=== PATIENT | male | born 1935 | race Caucasian/White ===

== ENCOUNTER 2020-08-19 09:44 | Outpatient (CLI) | payer OTHER ==
[~2020-08-19 09:44] MED LIST: DEXL60CA4 PO; OLME1TAB23 PO; STA60 PO
== END 2020-08-19 19:55 | disposition home or self-care (01) ==
LOC: SNM 09:44
PROVIDERS: ATTEND Internal Medicine
DX: C61 Malignant neoplasm of prostate (principal)
CPT/HCPCS: 78306; A9503

== ENCOUNTER 2022-01-18 10:30 | Outpatient (CLI) | payer OTHER, MEDICAID | END 2022-01-18 16:00 | disposition home or self-care (01) | LOC: SNM 10:30 | PROVIDERS: ATTEND Internal Medicine Medical Oncology | DX: C61 Malignant neoplasm of prostate (principal) | CPT/HCPCS: 78306; A9503 ==

== ENCOUNTER 2022-05-08 05:13 | Inpatient (IN) | payer OTHER, MEDICAID ==
[~2022-05-08] VITALS: Ht 175.3 cm; Wt 75.3 kg
[2022-05-08] MEDS ORDERED: LORazepam 2 MG/ML VIAL IVP ONE (05:30)
[2022-05-08] MEDS ORDERED: HYDROmorphone 1 MG/ML INJ. CARTRIDGE IVP ONE ×3 (05:30→14:45)
[2022-05-08 05:32] VITALS: BP_SYST 199
[2022-05-08] MEDS ORDERED: METOPROLOL TARTRATE 25 MG TABLET PO ONE (07:00)
[2022-05-08] MEDS ORDERED: OLMESARTAN MEDOXOMIL 20 MG TABLET PO ONE (07:00)
[2022-05-08] MEDS ORDERED: LOSARTAN POTASSIUM 50 MG TABLET (COZAAR) PO ONE (08:45)
[2022-05-08 09:07] LABS: BASOPHILS % (AUTO) 0.4 % (0.0-2.0); EOSINOPHILS % (AUTO) 0.3 % (0.0-4.0); HEMATOCRIT 39.6 % (36-54); HEMOGLOBIN 14.3 g/dL (14.0-18.0); LYMPHOCYTES # (AUTO) 1.3 K/uL (1.0-5.5); LYMPHOCYTES % (AUTO) 15.8 % (20.5-51.5); MEAN CORPUSCULAR HEMOGLOBIN 30 pg (27-31); MEAN CORPUSCULAR HGB CONC 36 % (32-36); MEAN CORPUSCULAR VOLUME 84 fL (79.0-98.0); MONOCYTES # (AUTO) 0.6 K/uL (0.0-1.0); MONOCYTES % (AUTO) 7.6 % (1.7-9.3); NEUTROPHILS # (AUTO) 6.1 K/uL (1.8-7.7); NEUTROPHILS % (AUTO) 75.9 % (40.0-70.0); PLATELET COUNT (AUTO) 237 K/uL (130-430); RED CELL DISTRIBUTION WIDTH 13.1 % (9.0-15.0); WHITE BLOOD COUNT (AUTO) 8.1 K/uL (4.8-10.8)
[2022-05-08 09:36] LABS: ANION GAP 13 (5-15); CALCIUM 8.9 mg/dL (8.4-11.0); CHLORIDE 86 mmol/L (98-107); CREATININE 0.98 mg/dL (0.55-1.30); GLUCOSE 201 mg/dL (70-99); SODIUM SERUM 121 mmol/L (136-145); UREA NITROGEN, BLOOD 14 mg/dL (8-21)
[2022-05-08 09:41] LABS: ALANINE AMINOTRANSFERASE 17 U/L (12-78); ASPARTATE AMINOTRANSFERASE 20 U/L (10-37)
[2022-05-08 10:04] LABS: ERYTHROCYTE SEDIMENTATION RATE 7 MM/HR (0-15)
[2022-05-08] MEDS ORDERED: hydrALAZINE HCL 20 MG/ML VIAL IVP ONE (10:15)
[2022-05-08] MEDS ORDERED: guaiFENesin/DEXTROMETHORPHAN 10 ML UDC PO PRN (13:00)
[2022-05-08] MEDS ORDERED: DOCUSATE SODIUM 100 MG/10 ML UDC PO PRN (13:00)
[2022-05-08] MEDS ORDERED: ONDANSETRON HCL 4 MG/2 ML VIAL IVP PRN (13:00)
[2022-05-08 13:24] LABS: INR 1.1 (0.80-1.20); PROTHROMBIN TIME 11.2 SECS (9.5-12.5)
[2022-05-08 13:35] LABS: FREE T4 (FREE THYROXINE) 1.1 ng/dl (0.8-1.5); PHOSPHORUS 2.7 mg/dL (2.7-4.5); THYROID STIMULATING HORMONE 6.05 uIu/mL (0.36-3.74)
[2022-05-08 15:45] VITALS: BP_SYST 180
[2022-05-08] MEDS ORDERED: LISINOPRIL 10 MG TABLET (PRINIVIL) PO ONE (16:30)
[2022-05-08] MEDS ORDERED: lisinopriL 20 MG TABLET PO ONE (16:30)
[2022-05-08] MEDS ORDERED: NATEGLINIDE 60 MG TABLET PO ONE ×2 (16:30)
[2022-05-08] MEDS: hydrALAZINE HCL 20 MG/ML VIAL IVP PRN (16:47)
[2022-05-08] MEDS ORDERED: NATEGLINIDE 120 MG TABLET PO ONE (17:15)
[2022-05-08] MEDS: ACETAMINOPHEN 500 MG TABLET PO PRN (18:21)
[2022-05-08] MEDS: POTASSIUM CHLORIDE 20 MEQ TAB.PRT.SR PO PRN (18:22)
[2022-05-08 20:08] VITALS: BP_SYST 107
[2022-05-09] VITALS: BP_SYST 135
[2022-05-09 06:15] LABS: BILIRUBIN,URINE NEGATIVE (NEGATIVE); CLARITY/URINE CLEAR (CLEAR); COLOR,URINE YELLOW (YELLOW); GLUCOSE,URINE 3+ (NEGATIVE); KETONES,URINE 1+ (NEGATIVE); LEUKOCYTE ESTERASE ,URINE NEGATIVE (NEGATIVE); NITRITE, URINE NEGATIVE (NEGATIVE); PH,URINE 6.5 (5.0-8.0); PROTEIN URINE NEGATIVE (NEGATIVE); UROBILINOGEN,URINE 0.2 (0.2-1.0)
[2022-05-09 06:16] LABS: BLOOD, URINE TRACE (NEGATIVE)
[2022-05-09 06:53] LABS: BACTERIA,URINE None Seen /HPF (None Seen); MUCUS,URINE None Seen /LPF (None Seen); WBC,URINE 0-3 /HPF (0-3)
[2022-05-09 07:24] LABS: BASOPHILS % (AUTO) 0.2 % (0.0-2.0); EOSINOPHILS % (AUTO) 0.4 % (0.0-4.0); HEMATOCRIT 39.8 % (36-54); HEMOGLOBIN 14.3 g/dL (14.0-18.0); LYMPHOCYTES # (AUTO) 1.8 K/uL (1.0-5.5); LYMPHOCYTES % (AUTO) 19.7 % (20.5-51.5); MEAN CORPUSCULAR HEMOGLOBIN 31 pg (27-31); MEAN CORPUSCULAR HGB CONC 36 % (32-36); MEAN CORPUSCULAR VOLUME 85 fL (79.0-98.0); MONOCYTES # (AUTO) 1.1 K/uL (0.0-1.0); MONOCYTES % (AUTO) 12.1 % (1.7-9.3); NEUTROPHILS # (AUTO) 6.3 K/uL (1.8-7.7); NEUTROPHILS % (AUTO) 67.6 % (40.0-70.0); PLATELET COUNT (AUTO) 275 K/uL (130-430); RED BLOOD CELL COUNT(AUTO) 4.67 MIL/uL (4.2-6.2); RED CELL DISTRIBUTION WIDTH 13.4 % (9.0-15.0); WHITE BLOOD COUNT (AUTO) 9.4 K/uL (4.8-10.8)
[2022-05-09 07:59] LABS: ANION GAP 12 (5-15); CALCIUM 8.4 mg/dL (8.4-11.0); CHLORIDE 87 mmol/L (98-107); CREATININE 1.88 mg/dL (0.55-1.30); GLUCOSE 138 mg/dL (70-99); SODIUM SERUM 122 mmol/L (136-145); UREA NITROGEN, BLOOD 26 mg/dL (8-21)
[2022-05-09 08:00] VITALS: BP_SYST 138
[2022-05-09] MEDS: NATEGLINIDE 120 MG TABLET PO SCH ×2 (08:00→17:33)
[2022-05-09] MEDS: METOCLOPRAMIDE HCL 10 MG/2 ML VIAL IVP PRN ×2 (08:13→23:02)
[2022-05-09] MEDS ORDERED: lisinopriL 20 MG TABLET PO SCH (09:00)
[2022-05-09] MEDS: PANTOPRAZOLE SODIUM 40 MG TAB PO SCH (11:50)
[2022-05-09] MEDS: POTASSIUM CHLORIDE 20 MEQ TAB.PRT.SR PO PRN (11:57)
[2022-05-09 12:00] VITALS: BP_SYST 132
[2022-05-09] MEDS: NACL 0.9% 1,000 ML IV SCH ×2 (14:18→22:25)
[2022-05-09] MEDS: ACETAMINOPHEN 500 MG TABLET PO PRN (14:19)
[2022-05-09] MEDS: traMADol HCL HCL 50 MG TABLET (ULTRAM) PO PRN ×2 (17:08→23:02)
[2022-05-09 17:14] VITALS: BP_SYST 139
[2022-05-09] MEDS ORDERED: ACETAMINOPHEN I.V. 1000 MG 100 ML IV PRN ×2 (19:45→20:45)
[2022-05-09 20:00] VITALS: BP_SYST 125
[2022-05-09] MEDS: ZOLPIDEM TARTRATE 5 MG TABLET PO PRN (21:12)
[2022-05-09] MEDS: CARVEDILOL 12.5 MG TABLET (COREG) PO SCH (21:13)
[2022-05-09] MEDS ORDERED: ACETAMINOPHEN I.V. 1000 MG 100 ML IV ONE (22:10)
[2022-05-10] VITALS: BP_SYST 98
[2022-05-10 07:25] LABS: BASOPHILS % (AUTO) 0.5 % (0.0-2.0); EOSINOPHILS % (AUTO) 0.4 % (0.0-4.0); HEMATOCRIT 37.8 % (36-54); HEMOGLOBIN 13.5 g/dL (14.0-18.0); LYMPHOCYTES # (AUTO) 1.3 K/uL (1.0-5.5); LYMPHOCYTES % (AUTO) 15.1 % (20.5-51.5); MEAN CORPUSCULAR HEMOGLOBIN 31 pg (27-31); MEAN CORPUSCULAR HGB CONC 36 % (32-36); MEAN CORPUSCULAR VOLUME 86 fL (79.0-98.0); MONOCYTES # (AUTO) 0.7 K/uL (0.0-1.0); MONOCYTES % (AUTO) 8.8 % (1.7-9.3); NEUTROPHILS # (AUTO) 6.4 K/uL (1.8-7.7); NEUTROPHILS % (AUTO) 75.2 % (40.0-70.0); PLATELET COUNT (AUTO) 249 K/uL (130-430); RED CELL DISTRIBUTION WIDTH 13.3 % (9.0-15.0); WHITE BLOOD COUNT (AUTO) 8.4 K/uL (4.8-10.8)
[2022-05-10 07:48] LABS: ANION GAP 9 (5-15); CALCIUM 7.9 mg/dL (8.4-11.0); CHLORIDE 95 mmol/L (98-107); CREATININE 1.61 mg/dL (0.55-1.30); GLUCOSE 181 mg/dL (70-99); POTASSIUM 3.6 mmol/L (3.5-5.1); SODIUM SERUM 126 mmol/L (136-145); UREA NITROGEN, BLOOD 32 mg/dL (8-21)
[2022-05-10 08:00] VITALS: BP_SYST 125
[2022-05-10] MEDS: NATEGLINIDE 120 MG TABLET PO SCH ×2 (09:07→17:21)
[2022-05-10] MEDS: CARVEDILOL 12.5 MG TABLET (COREG) PO SCH ×3 (09:08→20:58)
[2022-05-10] MEDS: PANTOPRAZOLE SODIUM 40 MG TAB PO SCH (09:09)
[2022-05-10] MEDS: NACL 0.9% 1,000 ML IV SCH (09:15)
[2022-05-10] MEDS: traMADol HCL HCL 50 MG TABLET (ULTRAM) PO PRN (09:31)
[2022-05-10 16:16] VITALS: BP_SYST 119
[2022-05-10 20:00] VITALS: BP_SYST 140
[2022-05-10] MEDS: LOPERAMIDE HCL 2 MG CAPSULE PO PRN (21:49)
[2022-05-11] VITALS: BP_SYST 134
[2022-05-11 06:43] LABS: BASOPHILS % (AUTO) 0.5 % (0.0-2.0); EOSINOPHILS # (AUTO) 0.3 K/uL (0.0-0.4); EOSINOPHILS % (AUTO) 2.8 % (0.0-4.0); HEMATOCRIT 37.4 % (36-54); HEMOGLOBIN 13.3 g/dL (14.0-18.0); LYMPHOCYTES # (AUTO) 1.8 K/uL (1.0-5.5); LYMPHOCYTES % (AUTO) 19.3 % (20.5-51.5); MEAN CORPUSCULAR HEMOGLOBIN 31 pg (27-31); MEAN CORPUSCULAR HGB CONC 35 % (32-36); MEAN CORPUSCULAR VOLUME 87 fL (79.0-98.0); MONOCYTES % (AUTO) 10.9 % (1.7-9.3); NEUTROPHILS # (AUTO) 6.2 K/uL (1.8-7.7); NEUTROPHILS % (AUTO) 66.5 % (40.0-70.0); PLATELET COUNT (AUTO) 228 K/uL (130-430); RED BLOOD CELL COUNT(AUTO) 4.33 MIL/uL (4.2-6.2); RED CELL DISTRIBUTION WIDTH 13.1 % (9.0-15.0); WHITE BLOOD COUNT (AUTO) 9.3 K/uL (4.8-10.8)
[2022-05-11 07:00] VITALS: BP_SYST 133
[2022-05-11 07:46] LABS: ANION GAP 9 (5-15); CALCIUM 8.9 mg/dL (8.4-11.0); CHLORIDE 99 mmol/L (98-107); CREATININE 1.16 mg/dL (0.55-1.30); GLUCOSE 154 mg/dL (70-99); POTASSIUM 3.4 mmol/L (3.5-5.1); SODIUM SERUM 131 mmol/L (136-145); UREA NITROGEN, BLOOD 24 mg/dL (8-21)
[2022-05-11] MEDS: PANTOPRAZOLE SODIUM 40 MG TAB PO SCH (08:15)
[2022-05-11 08:19] VITALS: BP_SYST 133
[2022-05-11] MEDS: NATEGLINIDE 120 MG TABLET PO SCH ×2 (09:53→17:03)
[2022-05-11] MEDS: traMADol HCL HCL 50 MG TABLET (ULTRAM) PO PRN ×3 (09:58→20:45)
[2022-05-11] MEDS: POTASSIUM CHLORIDE 20 MEQ TAB.PRT.SR PO PRN (11:57)
[2022-05-11] MEDS ORDERED: HYDROmorphone 1 MG/ML INJ. CARTRIDGE IVP ONE (12:00)
[2022-05-11 12:08] VITALS: BP_SYST 154
[2022-05-11] MEDS ORDERED: VALS160T29 PO (12:11)
[2022-05-11] MEDS ORDERED: CELE200C PO (12:13)
[2022-05-11] MEDS: LOPERAMIDE HCL 2 MG CAPSULE PO PRN (13:04)
[2022-05-11 16:00] VITALS: BP_SYST 144
[2022-05-11 19:52] VITALS: BP_SYST 129
[2022-05-11] MEDS: CARVEDILOL 12.5 MG TABLET (COREG) PO SCH (20:45)
[2022-05-12] VITALS (7 sets, daily range): BP systolic 138–156
[2022-05-12] MEDS: ZOLPIDEM TARTRATE 5 MG TABLET PO PRN ×2 (00:56→22:03)
[2022-05-12 06:39] LABS: BASOPHILS # (AUTO) 0.1 K/uL (0.0-0.2); BASOPHILS % (AUTO) 0.9 % (0.0-2.0); EOSINOPHILS # (AUTO) 0.6 K/uL (0.0-0.4); EOSINOPHILS % (AUTO) 7.9 % (0.0-4.0); HEMOGLOBIN 12.7 g/dL (14.0-18.0); LYMPHOCYTES # (AUTO) 1.8 K/uL (1.0-5.5); LYMPHOCYTES % (AUTO) 22.8 % (20.5-51.5); MEAN CORPUSCULAR HEMOGLOBIN 31 pg (27-31); MEAN CORPUSCULAR HGB CONC 35 % (32-36); MEAN CORPUSCULAR VOLUME 87 fL (79.0-98.0); MONOCYTES # (AUTO) 0.8 K/uL (0.0-1.0); MONOCYTES % (AUTO) 10.2 % (1.7-9.3); NEUTROPHILS # (AUTO) 4.7 K/uL (1.8-7.7); NEUTROPHILS % (AUTO) 58.2 % (40.0-70.0); PLATELET COUNT (AUTO) 212 K/uL (130-430); RED BLOOD CELL COUNT(AUTO) 4.13 MIL/uL (4.2-6.2); RED CELL DISTRIBUTION WIDTH 13.4 % (9.0-15.0)
[2022-05-12 06:53] LABS: ANION GAP 7 (5-15); CALCIUM 8.5 mg/dL (8.4-11.0); CHLORIDE 102 mmol/L (98-107); CREATININE 1.19 mg/dL (0.55-1.30); GLUCOSE 153 mg/dL (70-99); SODIUM SERUM 134 mmol/L (136-145); UREA NITROGEN, BLOOD 24 mg/dL (8-21)
[2022-05-12] MEDS: PANTOPRAZOLE SODIUM 40 MG TAB PO SCH (09:08)
[2022-05-12] MEDS: NATEGLINIDE 120 MG TABLET PO SCH ×2 (09:08→17:39)
[2022-05-12] MEDS: CARVEDILOL 12.5 MG TABLET (COREG) PO SCH ×2 (09:09→22:03)
[2022-05-12] MEDS: traMADol HCL HCL 50 MG TABLET (ULTRAM) PO PRN ×2 (13:38→23:58)
[2022-05-12] MEDS: KETOROLAC TROMETHAMINE 30 MG VIAL IVP PRN ×2 (16:03→22:02)
[2022-05-13 05:07] LABS: BASOPHILS # (AUTO) 0.1 K/uL (0.0-0.2); EOSINOPHILS # (AUTO) 0.7 K/uL (0.0-0.4); EOSINOPHILS % (AUTO) 9.7 % (0.0-4.0); HEMATOCRIT 35.5 % (36-54); HEMOGLOBIN 12.5 g/dL (14.0-18.0); LYMPHOCYTES # (AUTO) 1.6 K/uL (1.0-5.5); LYMPHOCYTES % (AUTO) 20.9 % (20.5-51.5); MEAN CORPUSCULAR HEMOGLOBIN 31 pg (27-31); MEAN CORPUSCULAR HGB CONC 35 % (32-36); MEAN CORPUSCULAR VOLUME 87 fL (79.0-98.0); MONOCYTES # (AUTO) 0.8 K/uL (0.0-1.0); MONOCYTES % (AUTO) 10.1 % (1.7-9.3); NEUTROPHILS # (AUTO) 4.3 K/uL (1.8-7.7); NEUTROPHILS % (AUTO) 58.3 % (40.0-70.0); PLATELET COUNT (AUTO) 214 K/uL (130-430); RED BLOOD CELL COUNT(AUTO) 4.07 MIL/uL (4.2-6.2); RED CELL DISTRIBUTION WIDTH 13.3 % (9.0-15.0); WHITE BLOOD COUNT (AUTO) 7.4 K/uL (4.8-10.8)
[2022-05-13] MEDS: KETOROLAC TROMETHAMINE 30 MG VIAL IVP PRN ×3 (05:16→22:17)
[2022-05-13 05:30] LABS: ANION GAP 6 (5-15); CALCIUM 8.7 mg/dL (8.4-11.0); CHLORIDE 100 mmol/L (98-107); CREATININE 1.29 mg/dL (0.55-1.30); GLUCOSE 152 mg/dL (70-99); POTASSIUM 4.4 mmol/L (3.5-5.1); SODIUM SERUM 131 mmol/L (136-145); UREA NITROGEN, BLOOD 26 mg/dL (8-21)
[2022-05-13 08:03] VITALS: BP_SYST 139
[2022-05-13] MEDS: NATEGLINIDE 120 MG TABLET PO SCH ×2 (09:04→17:53)
[2022-05-13] MEDS: CARVEDILOL 12.5 MG TABLET (COREG) PO SCH ×2 (09:04→20:15)
[2022-05-13] MEDS: PANTOPRAZOLE SODIUM 40 MG TAB PO SCH (09:04)
[2022-05-13] MEDS: traMADol HCL HCL 50 MG TABLET (ULTRAM) PO PRN ×2 (09:07→20:14)
[2022-05-13 11:39] VITALS: BP_SYST 144
[2022-05-13 12:13] VITALS: BP_SYST 144
[2022-05-13 12:48] VITALS: BP_SYST 139
[2022-05-13 15:36] VITALS: BP_SYST 155
[2022-05-13 20:00] VITALS: BP_SYST 133; BP_SYST 149
[2022-05-14] VITALS (7 sets, daily range): BP systolic 133–161
[2022-05-14] MEDS ORDERED: HYDROmorphone 1 MG/ML INJ. CARTRIDGE IVP ONE ×2 (00:30→21:15)
[2022-05-14] MEDS: NATEGLINIDE 120 MG TABLET PO SCH ×2 (08:22→17:21)
[2022-05-14] MEDS: PANTOPRAZOLE SODIUM 40 MG TAB PO SCH (08:22)
[2022-05-14] MEDS: CARVEDILOL 12.5 MG TABLET (COREG) PO SCH ×2 (08:23→21:04)
[2022-05-14] MEDS: KETOROLAC TROMETHAMINE 30 MG VIAL IVP PRN ×2 (09:44→16:07)
[2022-05-14] MEDS: traMADol HCL HCL 50 MG TABLET (ULTRAM) PO PRN (17:49)
[2022-05-14] MEDS: hydrALAZINE HCL 20 MG/ML VIAL IVP PRN (17:50)
== END 2022-05-14 23:10 | disposition home or self-care (01) | DRG 77 ==
LOC: SED 05:13 → STU 12:58 → SMU 05-14 23:10 → UNDODISIN 05-15 23:32
PROVIDERS: ADMIT Internal Medicine; ATTEND Internal Medicine
DX: I67.4 Hypertensive encephalopathy (principal); G93.41 Metabolic encephalopathy; I16.1 Hypertensive emergency; E87.1 Hypo-osmolality and hyponatremia; N17.9 Acute kidney failure, unspecified; I10 Essential (primary) hypertension; Z20.822 Contact with and (suspected) exposure to COVID-19; E11.9 Type 2 diabetes mellitus without complications; K21.9 Gastro-esophageal reflux disease without esophagitis; E87.6 Hypokalemia; M48.00 Spinal stenosis, site unspecified; G62.9 Polyneuropathy, unspecified; Z88.5 Allergy status to narcotic agent; Z88.0 Allergy status to penicillin; Z85.46 Personal history of malignant neoplasm of prostate
CPT/HCPCS: 36415; 73560-TC; 76770; 80048; 80053; 80061; 81000; 82150; 82962; 83036; 83605; 83690; 83735; 83880; 84100; 84439; 84443; 84550; 85025; 85610-TC; 85651-TC; 85730-TC; 93005; 96374; 96375; 96376; 97110-GP; 97112-GP; 97116-GP; 99285; G0378; J0131; J0360; J1170; J1885; J2060; J2405; J2765

== ENCOUNTER 2024-01-21 12:10 | Emergency (ER) | payer OTHER, MEDICAID ==
[~2024-01-21] VITALS: Ht 172.7 cm; Wt 86.2 kg
[2024-01-21 12:10] VITALS: BP_SYST 187; PULSE 72; RESP 18; TEMP 93.7; O2SAT 98
[~2024-01-21 12:10] MED LIST changes: +CELE200C PO; -OLME1TAB23 PO; +VALS160T29 PO
[2024-01-21] MEDS: ONDANSETRON HCL 4 MG/2 ML VIAL IVP ONE (13:48)
[2024-01-21] MEDS: LACTULOSE 20 GM/30 ML UDC PO ONE (13:48)
[2024-01-21] MEDS: NACL 0.9% 1,000 ML IV ONE (13:48)
[2024-01-21 14:13] LABS: BASOPHILS % (AUTO) 0.4 % (0.0-2.0); EOSINOPHILS # (AUTO) 0.1 K/uL (0.0-0.4); EOSINOPHILS % (AUTO) 1.6 % (0.0-4.0); HEMATOCRIT 35.1 % (36-54); HEMOGLOBIN 12.1 g/dL (14.0-18.0); LYMPHOCYTES # (AUTO) 0.8 K/uL (1.0-5.5); LYMPHOCYTES % (AUTO) 13.5 % (20.5-51.5); MEAN CORPUSCULAR HEMOGLOBIN 30 pg (27-31); MEAN CORPUSCULAR HGB CONC 34 % (32-36); MEAN CORPUSCULAR VOLUME 86 fL (79.0-98.0); MONOCYTES # (AUTO) 0.5 K/uL (0.0-1.0); MONOCYTES % (AUTO) 8.9 % (1.7-9.3); NEUTROPHILS # (AUTO) 4.6 K/uL (1.8-7.7); NEUTROPHILS % (AUTO) 75.6 % (40.0-70.0); PLATELET COUNT (AUTO) 228 K/uL (130-430); RED CELL DISTRIBUTION WIDTH 14.3 % (9.0-15.0); WHITE BLOOD COUNT (AUTO) 6.1 K/uL (4.8-10.8)
[2024-01-21 14:19] LABS: ANION GAP 7 (5-15); CALCIUM 8.9 mg/dL (8.4-11.0); CARBON DIOXIDE 27 mmol/L (23-29); CHLORIDE 100 mmol/L (98-107); CREATININE 1.77 mg/dL (0.55-1.30); GLUCOSE 187 mg/dL (74-106); POTASSIUM 4.3 mmol/L (3.5-5.1); SODIUM SERUM 134 mmol/L (136-145); UREA NITROGEN, BLOOD 24 mg/dL (8-21)
[2024-01-21 14:24] LABS: ALANINE AMINOTRANSFERASE 17 U/L (12-78); ALBUMIN 3.6 g/dL (3.4-4.8); ASPARTATE AMINOTRANSFERASE 22 U/L (10-37); LIPASE 34 U/L (16-77); TOTAL BILIRUBIN 0.4 mg/dL (0.0-1.0); TOTAL PROTEIN, SERUM 7.5 g/dL (6.4-8.3)
[2024-01-21] MEDS ORDERED: MAGN296S8 PO (15:30)
[2024-01-21] MEDS ORDERED: NA P133E41 RC (15:30)
[2024-01-21 16:56] VITALS: BP_SYST 138; PULSE 74; RESP 19; TEMP 98; O2SAT 98
== END 2024-01-21 16:58 | disposition home or self-care (01) ==
LOC: SED 12:10
DX: R10.31 Right lower quadrant pain (principal); R10.32 Left lower quadrant pain; E11.9 Type 2 diabetes mellitus without complications; K21.9 Gastro-esophageal reflux disease without esophagitis; I10 Essential (primary) hypertension; Z88.0 Allergy status to penicillin; Z88.5 Allergy status to narcotic agent; Z79.899 Other long term (current) drug therapy
CPT/HCPCS: 99283; 96360; 80053; 83690; 85025; 36415; J7030; J2405